=== PATIENT | female | born 1950 | race American Indian/Alaskan Native ===

== ENCOUNTER 2017-07-01 11:31 | Day surgery (SDC) | payer MEDICARE ==
[2017-07-01] MEDS ORDERED: MYDRIACYL OS ONE (11:54)
[2017-07-01] MEDS ORDERED: NEOFRIN OS ONE (11:54)
[2017-07-01] MEDS ORDERED: IOPIDINE OS ONE ×2 (11:54→13:28)
[2017-07-01 13:42] VITALS: BP 152/82
[2017-07-01] MEDS ORDERED: IOPIDINE ONE (15:36)
== END 2017-07-01 13:29 | disposition home or self-care (01) ==
LOC: OR 11:31
PROVIDERS: ATTEND Specialist
DX: E11.36 Type 2 diabetes mellitus with diabetic cataract (principal); H26.491 Other secondary cataract, right eye; M19.90 Unspecified osteoarthritis, unspecified site; G47.30 Sleep apnea, unspecified; I10 Essential (primary) hypertension; E78.00 Pure hypercholesterolemia, unspecified; F32.9 Major depressive disorder, single episode, unspecified; Z90.710 Acquired absence of both cervix and uterus; Z99.89 Dependence on other enabling machines and devices; Z87.891 Personal history of nicotine dependence; Z98.890 Other specified postprocedural states
CPT/HCPCS: 82962

== ENCOUNTER 2017-07-22 11:04 | Day surgery (SDC) | payer MEDICARE ==
[~2017-07-22 11:04] MED LIST: IOPIDINE ONE; LACTATED RINGERS 1,000 ML IV SCH; MYDRIACYL ONE; NEOFRIN ONE
[2017-07-22] MEDS ORDERED: NEOFRIN OS ONE (11:35)
[2017-07-22] MEDS ORDERED: MYDRIACYL OS ONE (11:35)
[2017-07-22] MEDS ORDERED: IOPIDINE OS ONE ×2 (11:35→12:18)
[2017-07-22 12:17] VITALS: BP 150/79
== END 2017-07-22 12:19 | disposition home or self-care (01) ==
LOC: OR 11:04
PROVIDERS: ATTEND Specialist
DX: E11.36 Type 2 diabetes mellitus with diabetic cataract (principal); H26.492 Other secondary cataract, left eye; I10 Essential (primary) hypertension; G47.30 Sleep apnea, unspecified; E78.00 Pure hypercholesterolemia, unspecified; M19.90 Unspecified osteoarthritis, unspecified site; F32.9 Major depressive disorder, single episode, unspecified; Z98.890 Other specified postprocedural states; Z79.899 Other long term (current) drug therapy; Z87.891 Personal history of nicotine dependence; Z90.710 Acquired absence of both cervix and uterus; Z85.41 Personal history of malignant neoplasm of cervix uteri
CPT/HCPCS: 82962